=== PATIENT | male | born 1950 | race African-American/Black ===

== ENCOUNTER 2017-10-27 17:08 | Inpatient (IN) | payer MEDICARE ==
[~2017-10-27] VITALS: Ht 177.8 cm; Wt 59.0 kg
[~2017-10-27 17:08] MED LIST: ASPI-1159 PO; ATOR40TA70 PO; CARV12.545 PO; CHOL100046 PO; CLOP75TA33 PO; FURO40TA5 PO; POTA10CA42 PO; SITA50TA3 PO
[2017-10-27 17:44] VITALS: BP 157/88
[2017-10-27] MEDS ORDERED: ONDANSETRON HCL 4MG/2ML VIAL IV PRN (18:15)
[2017-10-27] MEDS: SODIUM CHLORIDE 0.9% 1,000 ML IV SCH (18:58)
[2017-10-27 19:44] VITALS: BP 157/88
[2017-10-27 20:00] VITALS: BP 152/95
[2017-10-27] MEDS ORDERED: DEXTROSE 50% WATER 50ML SYRINGE IV PRN (20:00)
[2017-10-27] MEDS ORDERED: METF500T4 PO (20:02)
[2017-10-27] MEDS ORDERED: LINA5TAB PO (20:03)
[2017-10-27] MEDS ORDERED: DULO60CA44 PO (20:06)
[2017-10-27] MEDS ORDERED: LORA10TA7 PO (20:10)
[2017-10-27] MEDS ORDERED: OXYB5TAB11 PO (20:10)
[2017-10-27] MEDS ORDERED: TAMS0.4C31 PO (20:10)
[2017-10-27] MEDS ORDERED: OMEP20CA10 PO (20:13)
[2017-10-27] MEDS ORDERED: ASPI-986 PO (20:15)
[2017-10-27] MEDS ORDERED: HYDR-4134 PO (20:17)
[2017-10-27] MEDS ORDERED: PATAODR EACHEYE (20:20)
[2017-10-27] MEDS ORDERED: LOSA100T14 PO (20:21)
[2017-10-27] MEDS: INSULIN LISPRO 100 UNITS/ML SUBCUT SCH (21:00)
[2017-10-27] MEDS: HYDRALAZINE HCL 25MG TABLET PO SCH (21:27)
[2017-10-27] MEDS: CARVEDILOL 12.5MG TABLET PO SCH (21:28)
[2017-10-27] MEDS: BLOOD SUGAR DIAGNOSTIC STRIP TEST SCH (21:29)
[2017-10-28] VITALS (7 sets, daily range): BP systolic 133–167; BP diastolic 73–100
[2017-10-28 00:59] LABS: INR 1.1
[2017-10-28 06:11] LABS: BASOPHILS % 1.1 % (0.0-2.0); EOSINOPHILS % 9.3 % (0.0-5.0); HEMATOCRIT. 35.6 % (42.0-52.0); HEMOGLOBIN. 12.1 g/dL (14.0-18.0); LYMPHOCYTES % 15.3 % (20.0-50.0); MEAN CORPUSCULAR VOLUME 90.9 fL (80.0-94.0); MONOCYTES % 10.1 % (2.0-8.0); NEUTROPHILS % 64.2 % (40.0-76.0); PLATELET 234 x1000/uL (130-400); RED BLOOD CELL COUNT 3.92 mill/uL (4.7-6.1); RED CELL DISTRIBUTION WIDTH 14.7 % (11.6-14.6)
[2017-10-28] MEDS: BLOOD SUGAR DIAGNOSTIC STRIP TEST SCH ×5 (06:32→20:29)
[2017-10-28] MEDS: OMEPRAZOLE 20MG CAPSULE EXTENDED RELEASE PO SCH (06:32)
[2017-10-28] MEDS: HYDRALAZINE HCL 25MG TABLET PO SCH ×3 (06:32→21:46)
[2017-10-28] MEDS ORDERED: BLOOD SUGAR DIAGNOSTIC STRIP TEST SCH (07:20)
[2017-10-28] MEDS: INSULIN LISPRO 100 UNITS/ML SUBCUT SCH ×4 (07:36→20:29)
[2017-10-28] MEDS: METFORMIN HCL 500MG TABLET PO SCH ×2 (07:41→18:07)
[2017-10-28] MEDS: SODIUM CHLORIDE 0.9% 1,000 ML IV SCH ×2 (07:49→20:28)
[2017-10-28] MEDS ORDERED: ASPIRIN 325MG TABLET PO SCH (09:00)
[2017-10-28] MEDS: NAPHAZOLINE HCL/PHENIR MAL OPHTH SOLN 15ML EACHEYE SCH ×2 (09:00→17:00)
[2017-10-28] MEDS: LOSARTAN POTASSIUM 100 MG TABLET PO SCH (09:06)
[2017-10-28] MEDS: CARVEDILOL 12.5MG TABLET PO SCH ×2 (09:07→20:28)
[2017-10-28] MEDS: CLOPIDOGREL 75MG TABLET PO SCH (09:07)
[2017-10-28] MEDS: DULOXETINE HCL 60MG DR CAPSULE PO SCH (09:07)
[2017-10-28] MEDS: OXYBUTYNIN CHLORIDE 5MG TABLET PO SCH (09:07)
[2017-10-28] MEDS: FUROSEMIDE 40MG TABLET PO SCH (09:08)
[2017-10-28] MEDS: TAMSULOSIN HCL 0.4MG SR CAPSULE PO SCH (09:08)
[2017-10-28] MEDS: LINAGLIPTIN 5MG TABLET PO SCH (09:08)
[2017-10-28] MEDS: LORATADINE 10MG TABLET PO SCH (09:08)
[2017-10-28 16:05] LABS: FOLIC ACID (FOLATE) SERUM 13.3 ng/mL (>5.38)
[2017-10-28] MEDS ORDERED: POTASSIUM CHLORIDE 20MEQ TABLET SR PO NR (16:30)
[2017-10-28 17:01] LABS: AMMONIA < 25 uMol/L (<32); ETHANOL BLOOD < 10 mg/dL
[2017-10-28 17:12] LABS: T4 FREE 1.03 ng/dL (0.76-1.46)
[2017-10-28] MEDS: ATORVASTATIN CALCIUM 40MG TABLET PO SCH (20:28)
[2017-10-29] VITALS: BP 130/89
[2017-10-29 03:17] LABS: *AMPHETAMINES SCREEN URINE NEGATIVE (NEGATIVE); *BARBITURATES SCREEN URINE NEGATIVE (NEGATIVE); *BENZODIAZEPINES SCREEN URINE NEGATIVE (NEGATIVE); *COCAINE SCREEN URINE NEGATIVE (NEGATIVE); CANNABINOID URINE SCREEN NEGATIVE (NEGATIVE); METHADONE URINE SCREEN NEGATIVE (NEGATIVE); OPIATES URINE SCREEN NEGATIVE (NEGATIVE); PHENCYCLIDINE URINE SCREEN NEGATIVE (NEGATIVE)
[2017-10-29 04:00] VITALS: BP 134/77
[2017-10-29] MEDS: HYDRALAZINE HCL 25MG TABLET PO SCH ×3 (06:05→21:21)
[2017-10-29] MEDS: BLOOD SUGAR DIAGNOSTIC STRIP TEST SCH ×4 (06:06→21:31)
[2017-10-29] MEDS: SODIUM CHLORIDE 0.9% 1,000 ML IV SCH ×2 (06:07→23:13)
[2017-10-29 08:00] VITALS: BP 183/102
[2017-10-29] MEDS: INSULIN LISPRO 100 UNITS/ML SUBCUT SCH ×4 (08:10→21:00)
[2017-10-29] MEDS: METFORMIN HCL 500MG TABLET PO SCH ×2 (08:24→18:04)
[2017-10-29] MEDS: LORATADINE 10MG TABLET PO SCH (08:24)
[2017-10-29] MEDS: OMEPRAZOLE 20MG CAPSULE EXTENDED RELEASE PO SCH (08:24)
[2017-10-29] MEDS: CLOPIDOGREL 75MG TABLET PO SCH (08:24)
[2017-10-29] MEDS: LINAGLIPTIN 5MG TABLET PO SCH (08:25)
[2017-10-29] MEDS: FUROSEMIDE 40MG TABLET PO SCH (08:25)
[2017-10-29] MEDS: DULOXETINE HCL 60MG DR CAPSULE PO SCH (08:25)
[2017-10-29] MEDS: LOSARTAN POTASSIUM 100 MG TABLET PO SCH (08:25)
[2017-10-29] MEDS: TAMSULOSIN HCL 0.4MG SR CAPSULE PO SCH (08:25)
[2017-10-29] MEDS: OXYBUTYNIN CHLORIDE 5MG TABLET PO SCH (08:25)
[2017-10-29] MEDS: CARVEDILOL 12.5MG TABLET PO SCH ×2 (08:25→21:21)
[2017-10-29] MEDS: ASPIRIN 81MG TABLET PO SCH (08:26)
[2017-10-29] MEDS: NAPHAZOLINE HCL/PHENIR MAL OPHTH SOLN 15ML EACHEYE SCH ×2 (08:26→17:30)
[2017-10-29 09:15] LABS: BG BASE EXCESS -2.4 mmol/L (-2.0-2.0); BG DEOXYHEMOGLOBIN 3.2 % (0.0-5.0); BG FRACTION INSPIRED OXYGEN 21; BG HCO3 ACT 21.4 mmol/L (22.0-26.0); BG METHEMOGLOBIN 0.3 % (0.0-1.5); BG OXYGEN SATURATION 96.8 % (92.0-98.5); BG OXYHEMOGLOBIN 96.5 % (94.0-97.0); BG PCO2 34.1 mmHg (35.0-45.0); BG PH 7.416 (7.350-7.450); BG PO2 93.9 mmHg (75.0-100.0); BG SAMPLE SITE LEFT RADIAL; BG TOTAL HEMOGLOBIN 13.5 g/dL (12.0-18.0); BG VENT MODE ROOM AIR
[2017-10-29 12:00] VITALS: BP 138/86
[2017-10-29 16:00] VITALS: BP 149/90
[2017-10-29] MEDS: IPRATROPIUM/ALBUTEROL 0.5-3(2.5)MG/3ML NEB HHN SCH ×2 (16:25→20:45)
[2017-10-29 20:22] VITALS: BP 150/84
[2017-10-29] MEDS: ATORVASTATIN CALCIUM 40MG TABLET PO SCH (21:21)
[2017-10-30] VITALS: BP 162/82
[2017-10-30] MEDS: IPRATROPIUM/ALBUTEROL 0.5-3(2.5)MG/3ML NEB HHN SCH ×5 (01:12→20:18)
[2017-10-30 04:00] VITALS: BP 145/91
[2017-10-30] MEDS: HYDRALAZINE HCL 25MG TABLET PO SCH ×3 (06:04→20:32)
[2017-10-30 06:42] LABS: EOSINOPHILS % 8.5 % (0.0-5.0); HEMATOCRIT. 37.2 % (42.0-52.0); HEMOGLOBIN. 12.5 g/dL (14.0-18.0); LYMPHOCYTES % 12.2 % (20.0-50.0); MEAN CORPUSCULAR HEMOGLOBIN 30.6 pg (28.0-32.0); MEAN CORPUSCULAR VOLUME 90.9 fL (80.0-94.0); MEAN PLATELET VOLUME 8.1 fl (7.4-10.4); MONOCYTES % 10.1 % (2.0-8.0); NEUTROPHILS % 68.2 % (40.0-76.0); PLATELET 233 x1000/uL (130-400); RED BLOOD CELL COUNT 4.09 mill/uL (4.7-6.1); RED CELL DISTRIBUTION WIDTH 14.6 % (11.6-14.6)
[2017-10-30 07:30] LABS: CHLORIDE 105 mEq/L (98-107)
[2017-10-30 07:38] LABS: HDL CHOLESTEROL 27 mg/dL (40-59); LDL CHOLESTEROL 88 mg/dL (5-100)
[2017-10-30 08:00] VITALS: BP 147/84
[2017-10-30] MEDS: INSULIN LISPRO 100 UNITS/ML SUBCUT SCH ×4 (08:10→20:36)
[2017-10-30] MEDS: BLOOD SUGAR DIAGNOSTIC STRIP TEST SCH ×4 (08:21→20:32)
[2017-10-30] MEDS: OMEPRAZOLE 20MG CAPSULE EXTENDED RELEASE PO SCH (08:42)
[2017-10-30] MEDS: NAPHAZOLINE HCL/PHENIR MAL OPHTH SOLN 15ML EACHEYE SCH ×2 (08:42→17:40)
[2017-10-30] MEDS: ASPIRIN 81MG TABLET PO SCH (08:42)
[2017-10-30] MEDS: OXYBUTYNIN CHLORIDE 5MG TABLET PO SCH (08:42)
[2017-10-30] MEDS: METFORMIN HCL 500MG TABLET PO SCH ×2 (08:42→17:40)
[2017-10-30] MEDS: LOSARTAN POTASSIUM 100 MG TABLET PO SCH (08:42)
[2017-10-30] MEDS: DULOXETINE HCL 60MG DR CAPSULE PO SCH (08:43)
[2017-10-30] MEDS: FUROSEMIDE 40MG TABLET PO SCH (08:43)
[2017-10-30] MEDS: TAMSULOSIN HCL 0.4MG SR CAPSULE PO SCH (08:43)
[2017-10-30] MEDS: CLOPIDOGREL 75MG TABLET PO SCH (08:44)
[2017-10-30] MEDS: CARVEDILOL 12.5MG TABLET PO SCH (08:44)
[2017-10-30] MEDS: LINAGLIPTIN 5MG TABLET PO SCH (08:44)
[2017-10-30] MEDS: LORATADINE 10MG TABLET PO SCH (08:44)
[2017-10-30 10:37] LABS: BG BASE EXCESS -4.6 mmol/L (-2.0-2.0); BG CARBOXYHEMOGLOBIN 0.1 % (0.5-1.5); BG DEOXYHEMOGLOBIN 2.9 % (0.0-5.0); BG FRACTION INSPIRED OXYGEN 21; BG HCO3 ACT 19.5 mmol/L (22.0-26.0); BG METHEMOGLOBIN 0.2 % (0.0-1.5); BG OXYGEN SATURATION 97.1 % (92.0-98.5); BG OXYHEMOGLOBIN 96.8 % (94.0-97.0); BG PCO2 32.9 mmHg (35.0-45.0); BG PO2 99.9 mmHg (75.0-100.0); BG SAMPLE SITE LEFT RADIAL; BG TOTAL HEMOGLOBIN 12.6 g/dL (12.0-18.0); BG VENT MODE ROOM AIR
[2017-10-30] MEDS ORDERED: CARVEDILOL 12.5MG TABLET PO SCH (11:30)
[2017-10-30 12:00] VITALS: BP_SYST 116; BP_SYST 134; BP_SYST 148; BP_DIAS 101; BP_DIAS 77; BP_DIAS 82
[2017-10-30] MEDS: SODIUM CHLORIDE 0.9% 1,000 ML IV SCH (13:51)
[2017-10-30 16:00] VITALS: BP 146/90
[2017-10-30 20:00] VITALS: BP_SYST 140; BP_SYST 145; BP_SYST 162; BP_DIAS 85; BP_DIAS 92; BP_DIAS 97
[2017-10-30] MEDS: ATORVASTATIN CALCIUM 40MG TABLET PO SCH (20:31)
[2017-10-30] MEDS: CARVEDILOL 25MG TABLET PO SCH (20:32)
[2017-10-31] VITALS: BP 133/82
[2017-10-31] MEDS: IPRATROPIUM/ALBUTEROL 0.5-3(2.5)MG/3ML NEB HHN SCH ×6 (00:22→20:17)
[2017-10-31] MEDS: SODIUM CHLORIDE 0.9% 1,000 ML IV SCH ×2 (02:16→13:20)
[2017-10-31 04:00] VITALS: BP 141/97
[2017-10-31 06:10] LABS: BASOPHILS % 1.2 % (0.0-2.0); HEMATOCRIT. 34.5 % (42.0-52.0); HEMOGLOBIN. 11.8 g/dL (14.0-18.0); LYMPHOCYTES % 14.3 % (20.0-50.0); MEAN CORPUSCULAR HEMOGLOBIN 30.8 pg (28.0-32.0); MEAN CORPUSCULAR VOLUME 90.5 fL (80.0-94.0); MEAN PLATELET VOLUME 7.9 fl (7.4-10.4); MONOCYTES % 9.7 % (2.0-8.0); NEUTROPHILS % 66.8 % (40.0-76.0); PLATELET 229 x1000/uL (130-400); RED BLOOD CELL COUNT 3.82 mill/uL (4.7-6.1); RED CELL DISTRIBUTION WIDTH 14.5 % (11.6-14.6)
[2017-10-31] MEDS: HYDRALAZINE HCL 25MG TABLET PO SCH ×3 (06:12→22:00)
[2017-10-31] MEDS: BLOOD SUGAR DIAGNOSTIC STRIP TEST SCH ×4 (06:12→21:00)
[2017-10-31] MEDS: INSULIN LISPRO 100 UNITS/ML SUBCUT SCH ×4 (07:16→21:00)
[2017-10-31 08:00] VITALS: BP 159/83
[2017-10-31 08:20] LABS: CHLORIDE 105 mEq/L (98-107)
[2017-10-31] MEDS: NAPHAZOLINE HCL/PHENIR MAL OPHTH SOLN 15ML EACHEYE SCH ×2 (09:36→17:48)
[2017-10-31] MEDS: ASPIRIN 81MG TABLET PO SCH (09:36)
[2017-10-31] MEDS: LINAGLIPTIN 5MG TABLET PO SCH (09:37)
[2017-10-31] MEDS: FUROSEMIDE 40MG TABLET PO SCH (09:37)
[2017-10-31] MEDS: CLOPIDOGREL 75MG TABLET PO SCH (09:37)
[2017-10-31] MEDS: METFORMIN HCL 500MG TABLET PO SCH ×2 (09:37→17:45)
[2017-10-31] MEDS: OXYBUTYNIN CHLORIDE 5MG TABLET PO SCH (09:37)
[2017-10-31] MEDS: FAMOTIDINE 20MG TABLET PO SCH (09:37)
[2017-10-31] MEDS: LOSARTAN POTASSIUM 100 MG TABLET PO SCH (09:37)
[2017-10-31] MEDS: CARVEDILOL 25MG TABLET PO SCH ×2 (09:38→21:51)
[2017-10-31] MEDS: DULOXETINE HCL 60MG DR CAPSULE PO SCH (09:38)
[2017-10-31] MEDS: LORATADINE 10MG TABLET PO SCH (09:38)
[2017-10-31] MEDS: TAMSULOSIN HCL 0.4MG SR CAPSULE PO SCH (09:38)
[2017-10-31 12:00] VITALS: BP 143/83
[2017-10-31 16:00] VITALS: BP 127/84
[2017-10-31 20:00] VITALS: BP 135/76
[2017-10-31] MEDS: ATORVASTATIN CALCIUM 40MG TABLET PO SCH (21:49)
[2017-11-01] VITALS: BP 150/89
[2017-11-01] MEDS: IPRATROPIUM/ALBUTEROL 0.5-3(2.5)MG/3ML NEB HHN SCH ×3 (00:33→08:13)
[2017-11-01 04:00] VITALS: BP 102/45
[2017-11-01] MEDS: SODIUM CHLORIDE 0.9% 1,000 ML IV SCH (04:55)
[2017-11-01] MEDS: HYDRALAZINE HCL 25MG TABLET PO SCH (06:00)
[2017-11-01] MEDS: BLOOD SUGAR DIAGNOSTIC STRIP TEST SCH (06:37)
[2017-11-01 07:36] LABS: BASOPHILS % 0.8 % (0.0-2.0); HEMATOCRIT. 36.8 % (42.0-52.0); HEMOGLOBIN. 12.5 g/dL (14.0-18.0); LYMPHOCYTES % 10.1 % (20.0-50.0); MEAN CORPUSCULAR HEMOGLOBIN 30.9 pg (28.0-32.0); MEAN CORPUSCULAR VOLUME 90.7 fL (80.0-94.0); MEAN PLATELET VOLUME 8.1 fl (7.4-10.4); MONOCYTES % 9.4 % (2.0-8.0); NEUTROPHILS % 71.7 % (40.0-76.0); PLATELET 236 x1000/uL (130-400); RED BLOOD CELL COUNT 4.06 mill/uL (4.7-6.1); RED CELL DISTRIBUTION WIDTH 14.8 % (11.6-14.6)
[2017-11-01 08:00] VITALS: BP 135/78
[2017-11-01] MEDS: INSULIN LISPRO 100 UNITS/ML SUBCUT SCH (08:10)
[2017-11-01 08:12] LABS: CHLORIDE 104 mEq/L (98-107)
[2017-11-01] MEDS ORDERED: IPRATROPIUM/ALBUTEROL 0.5-3(2.5)MG/3ML NEB HHN PRN (08:45)
[2017-11-01] MEDS: ASPIRIN 81MG TABLET PO SCH (08:47)
[2017-11-01] MEDS: FUROSEMIDE 40MG TABLET PO SCH (08:47)
[2017-11-01] MEDS: CLOPIDOGREL 75MG TABLET PO SCH (08:47)
[2017-11-01] MEDS: METFORMIN HCL 500MG TABLET PO SCH (08:47)
[2017-11-01] MEDS: OXYBUTYNIN CHLORIDE 5MG TABLET PO SCH (08:47)
[2017-11-01] MEDS: FAMOTIDINE 20MG TABLET PO SCH (08:47)
[2017-11-01] MEDS: LOSARTAN POTASSIUM 100 MG TABLET PO SCH (08:47)
[2017-11-01] MEDS: TAMSULOSIN HCL 0.4MG SR CAPSULE PO SCH (08:48)
[2017-11-01] MEDS: LORATADINE 10MG TABLET PO SCH (08:53)
[2017-11-01] MEDS: DULOXETINE HCL 60MG DR CAPSULE PO SCH (08:53)
[2017-11-01] MEDS: CARVEDILOL 25MG TABLET PO SCH (08:54)
[2017-11-01] MEDS: LINAGLIPTIN 5MG TABLET PO SCH (08:54)
[2017-11-01] MEDS: NAPHAZOLINE HCL/PHENIR MAL OPHTH SOLN 15ML EACHEYE SCH (09:00)
[2017-11-01 09:42] VITALS: BP 135/78
[2017-11-01 12:00] VITALS: BP 130/79
== END 2017-11-01 13:45 | DRG 291 ==
LOC: 6EST 17:08 → 7WST 10-28 17:40
PROVIDERS: ADMIT Family Medicine Adult Medicine; ATTEND Family Medicine Adult Medicine
PROC: 4A00X4Z Measurement of Central Nervous Electrical Activity, External Approach (ICD-10-PCS; principal; 2017-10-31)
DX: I13.0 Hypertensive heart and chronic kidney disease with heart failure and stage 1 through stage 4 chronic kidney disease, or unspecified chronic kidney disease (principal); G92 Toxic encephalopathy; E11.22 Type 2 diabetes mellitus with diabetic chronic kidney disease; I42.9 Cardiomyopathy, unspecified; I65.29 Occlusion and stenosis of unspecified carotid artery; I50.9 Heart failure, unspecified; W18.39XA Other fall on same level, initial encounter; N18.9 Chronic kidney disease, unspecified; D64.9 Anemia, unspecified; E78.00 Pure hypercholesterolemia, unspecified; E78.5 Hyperlipidemia, unspecified; I25.10 Atherosclerotic heart disease of native coronary artery without angina pectoris; J44.9 Chronic obstructive pulmonary disease, unspecified; N40.0 Benign prostatic hyperplasia without lower urinary tract symptoms; Y93.89 Activity, other specified; Y92.89 Other specified places as the place of occurrence of the external cause; Y99.8 Other external cause status; Z79.02 Long term (current) use of antithrombotics/antiplatelets; Z82.49 Family history of ischemic heart disease and other diseases of the circulatory system; Z83.3 Family history of diabetes mellitus; Z86.73 Personal history of transient ischemic attack (TIA), and cerebral infarction without residual deficits
CPT/HCPCS: 36415; 36600; 70544; 70551; 71045; 80048; 80061; 80305; 82140; 82375; 82607; 82746; 82805; 82962; 83036; 83735; 84439; 84443; 84481; 85025; 85384; 85610; 87077; 87086; 92523; 93005; 93306; 93880; 94640; 97162; 97166; G0482; J1815; J7030; J7620

== ENCOUNTER 2019-01-01 18:12 | Inpatient (IN) | payer MEDICARE, MEDICAID ==
[~2019-01-01] VITALS: Ht 180.3 cm; Wt 74.9 kg
[~2019-01-01 18:12] MED LIST changes: -ASPI-1159 PO; +ASPI-986 PO; -CHOL100046 PO; +DULO60CA44 PO; +HYDR-4134 PO; +LINA5TAB PO; +LORA10TA7 PO; +LOSA100T32 PO; +METF-414 PO; +OMEP20CA5 PO; +OXYB5TAB11 PO; +PATAODR EACHEYE; -POTA10CA42 PO; -SITA50TA3 PO; +TAMS0.4C31 PO
[2019-01-01] MEDS ORDERED: FUROSEMIDE 40MG/4ML VIAL IV ONE (19:45)
[2019-01-01] MEDS ORDERED: METHYLPREDNISOLONE SOD SUCC 125 MG/2 ML VIAL IV STA (19:45)
[2019-01-01] MEDS ORDERED: LEVOFLOXACIN 750MG PREMIX 150 ML IV ONE (19:45)
[2019-01-01] MEDS ORDERED: IPRATROPIUM/ALBUTEROL 0.5-3(2.5)MG/3ML NEB HHN ONE (19:45)
[2019-01-01 20:21] LABS: BG BASE EXCESS -1.1 mmol/L (-2.0-2.0); BG CARBOXYHEMOGLOBIN 0.6 % (0.5-1.5); BG DEOXYHEMOGLOBIN 4.3 % (0.0-5.0); BG FRACTION INSPIRED OXYGEN 36; BG HCO3 ACT 24.3 mmol/L (22.0-26.0); BG METHEMOGLOBIN 0.1 % (0.0-1.5); BG OXYGEN SATURATION 95.7 % (92.0-98.5); BG PCO2 43.1 mmHg (35.0-45.0); BG PH 7.369 (7.350-7.450); BG PO2 83.9 mmHg (75.0-100.0); BG SAMPLE SITE RIGHT RADIAL; BG TOTAL HEMOGLOBIN 14.9 g/dL (12.0-18.0); BG VENT MODE NASAL CANNULA
[2019-01-01 20:22] LABS: BASOPHILS % 0.7 % (0.0-2.0); EOSINOPHILS % 10.8 % (0.0-5.0); HEMATOCRIT. 46.9 % (42.0-52.0); HEMOGLOBIN. 15.8 g/dL (14.0-18.0); LYMPHOCYTES % 7.3 % (20.0-50.0); MEAN CORPUSCULAR HEMOGLOBIN 30.5 pg (28.0-32.0); MEAN CORPUSCULAR VOLUME 90.6 fL (80.0-94.0); MEAN PLATELET VOLUME 7.9 fl (7.4-10.4); MONOCYTES % 5.5 % (2.0-8.0); NEUTROPHILS % 75.7 % (40.0-76.0); PLATELET 292 x1000/uL (130-400); RED BLOOD CELL COUNT 5.18 mill/uL (4.7-6.1); RED CELL DISTRIBUTION WIDTH 14.6 % (11.6-14.6)
[2019-01-01 20:25] LABS: CHLORIDE 102 mEq/L (98-107)
[2019-01-01 20:27] LABS: INR 1.1; PARTIAL THROMBOPLASTIN TIME 30.9 sec (23.4-31.0); PROTHROMBIN TIME 10.8 sec (9.6-11.0)
[2019-01-01 20:29] LABS: ETHANOL BLOOD < 10 mg/dL
[2019-01-01 22:18] LABS: CLARITY URINE CLEAR (CLEAR); COLOR URINE YELLOW (YELLOW); KETONES URINE NEGATIVE (NEGATIVE); LEUKOCYTE ESTERASE URINE NEGATIVE (NEGATIVE); NITRITE URINE NEGATIVE (NEGATIVE); OCCULT BLOOD URINE NEGATIVE (NEGATIVE); PROTEIN URINE NEGATIVE (NEGATIVE); SPECIFIC GRAVITY URINE 1.012 (1.005-1.030); UROBILINOGEN URINE 0.2 E.U./dL (0.2-1.0)
[2019-01-01 22:29] LABS: OPIATES URINE SCREEN NEGATIVE (NEGATIVE); PHENCYCLIDINE URINE SCREEN NEGATIVE (NEGATIVE)
[2019-01-01 22:30] LABS: *AMPHETAMINES SCREEN URINE NEGATIVE (NEGATIVE); *BARBITURATES SCREEN URINE NEGATIVE (NEGATIVE); *BENZODIAZEPINES SCREEN URINE NEGATIVE (NEGATIVE); *COCAINE SCREEN URINE NEGATIVE (NEGATIVE); CANNABINOID URINE SCREEN NEGATIVE (NEGATIVE); METHADONE URINE SCREEN NEGATIVE (NEGATIVE)
[2019-01-01] MEDS ORDERED: IPRATROPIUM/ALBUTEROL 0.5-3(2.5)MG/3ML NEB INH PRN (22:30)
[2019-01-01] MEDS ORDERED: HYDROCODONE/APAP 7.5/325MG 1 TAB TABLET PO PRN (22:30)
[2019-01-01] MEDS ORDERED: CLONIDINE 0.1MG TABLET PO PRN (22:30)
[2019-01-01] MEDS ORDERED: MAGNESIUM/ALUMINUM HYDROXIDE/SIMETHICONE 30ML UDC PO PRN (22:30)
[2019-01-01] MEDS ORDERED: DOCUSATE SODIUM 100MG CAPSULE PO PRN (22:30)
[2019-01-01] MEDS ORDERED: HYDROCODONE/ACETAMINOPHEN 5/325MG TABLET PO PRN (22:30)
[2019-01-01] MEDS ORDERED: DIPHENHYDRAMINE 50MG/ML VIAL IV PRN (22:30)
[2019-01-01] MEDS ORDERED: LORAZEPAM 0.5MG TABLET PO PRN (22:30)
[2019-01-01] MEDS ORDERED: ACETAMINOPHEN 325MG TABLET PO PRN (22:30)
[2019-01-01] MEDS ORDERED: ONDANSETRON HCL 4MG/2ML INJ IV PRN (22:30)
[2019-01-01] MEDS ORDERED: GUAIFENESIN 200MG/10ML SUGAR FREE UDC PO PRN (22:30)
[2019-01-01 23:40] VITALS: BP 134/88
[2019-01-02] VITALS: BP_SYST 100; BP_SYST 134; BP_DIAS 59; BP_DIAS 88
[2019-01-02] MEDS ORDERED: DEXTROSE 50% WATER 50ML SYRINGE IV PRN (00:45)
[2019-01-02] MEDS ORDERED: CARV25TA47 PO (01:38)
[2019-01-02] MEDS ORDERED: FAMO20TA8 PO (01:38)
[2019-01-02] MEDS ORDERED: ONDA4TAB50 PO (01:38)
[2019-01-02] MEDS ORDERED: ASPI-1393 PO (01:38)
[2019-01-02] MEDS ORDERED: DULO30CA2 PO (01:38)
[2019-01-02] MEDS ORDERED: NAPHADR OP (01:38)
[2019-01-02] MEDS ORDERED: IPRA3AMP9 HHN (01:38)
[2019-01-02] MEDS ORDERED: METF-816 PO (01:38)
[2019-01-02] MEDS ORDERED: EMPA25TA PO (01:38)
[2019-01-02 04:00] VITALS: BP 128/74
[2019-01-02 06:18] LABS: HEMATOCRIT. 41.3 % (42.0-52.0); HEMOGLOBIN. 13.9 g/dL (14.0-18.0); MEAN CORPUSCULAR HEMOGLOBIN 30.2 pg (28.0-32.0); MEAN CORPUSCULAR VOLUME 89.5 fL (80.0-94.0); PLATELET 276 x1000/uL (130-400); RED BLOOD CELL COUNT 4.61 mill/uL (4.7-6.1); RED CELL DISTRIBUTION WIDTH 14.7 % (11.6-14.6)
[2019-01-02] MEDS: INSULIN LISPRO 100 UNITS/ML SUBCUT SCH ×4 (06:34→20:43)
[2019-01-02] MEDS: BLOOD SUGAR DIAGNOSTIC STRIP TEST SCH ×4 (06:35→20:37)
[2019-01-02 06:39] LABS: CHLORIDE 103 mEq/L (98-107)
[2019-01-02 06:50] LABS: LDL CHOLESTEROL 84 mg/dL (5-100)
[2019-01-02 06:51] LABS: HDL CHOLESTEROL 29 mg/dL (40-59); PHOSPHORUS 2.6 mg/dL (2.5-4.9)
[2019-01-02 08:00] VITALS: BP 102/68
[2019-01-02] MEDS ORDERED: METHYLPREDNISOLONE SOD SUCC 125 MG/2 ML VIAL IV NR (09:00)
[2019-01-02] MEDS: ENOXAPARIN 40MG/0.4ML SYR SUBCUT SCH (09:03)
[2019-01-02 12:00] VITALS: BP 96/66
[2019-01-02] MEDS ORDERED: BENZONATATE 100MG CAPSULE PO PRN (13:45)
[2019-01-02 14:24] LABS: PLATELET ESTIMATE NORMAL
[2019-01-02 16:00] VITALS: BP 97/68
[2019-01-02] MEDS: MONTELUKAST SODIUM 10MG TABLET PO SCH (17:28)
[2019-01-02 20:00] VITALS: BP 97/64
[2019-01-02] MEDS: FLUTICASONE PROPIONATE 50MCG/SPRAY BOTTLE BOTHNSTRLS SCH (20:40)
[2019-01-02] MEDS: LORATADINE 10MG TABLET PO SCH (20:40)
[2019-01-03] VITALS: BP 100/59
[2019-01-03 04:00] VITALS: BP 110/60
[2019-01-03] MEDS: BLOOD SUGAR DIAGNOSTIC STRIP TEST SCH ×4 (06:13→20:16)
[2019-01-03] MEDS: INSULIN LISPRO 100 UNITS/ML SUBCUT SCH ×4 (06:15→20:26)
[2019-01-03 08:00] VITALS: BP 121/78
[2019-01-03] MEDS: BUDESONIDE 0.5MG/2ML NEB HHN SCH ×2 (09:04→20:48)
[2019-01-03] MEDS: ENOXAPARIN 40MG/0.4ML SYR SUBCUT SCH (09:10)
[2019-01-03] MEDS: FLUTICASONE PROPIONATE 50MCG/SPRAY BOTTLE BOTHNSTRLS SCH ×2 (09:11→20:22)
[2019-01-03 12:00] VITALS: BP 112/61
[2019-01-03] MEDS ORDERED: SODIUM CHLORIDE 0.45% 500 ML IV ONE (14:30)
[2019-01-03] MEDS: CLOPIDOGREL 75MG TABLET PO SCH (14:58)
[2019-01-03 16:00] VITALS: BP 112/84
[2019-01-03 16:38] LABS: HEMOGLOBIN 13.4 g/dL (14.0-18.0); MEAN CORPUSCULAR HEMOGLOBIN 30.2 pg (28.0-32.0); MEAN CORPUSCULAR VOLUME 90.3 fL (80.0-94.0); PLATELET 262 x1000/uL (130-400); RED BLOOD CELL COUNT 4.43 mill/uL (4.7-6.1); RED CELL DISTRIBUTION WIDTH 14.6 % (11.6-14.6)
[2019-01-03 16:56] LABS: CHLORIDE 102 mEq/L (98-107)
[2019-01-03] MEDS: MONTELUKAST SODIUM 10MG TABLET PO SCH (17:12)
[2019-01-03] MEDS: NAPHAZOLINE HCL/PHENIR MAL OPHTH SOLN 15ML BOTHEYE SCH (17:12)
[2019-01-03 20:00] VITALS: BP 110/71
[2019-01-03] MEDS: LORATADINE 10MG TABLET PO SCH (20:21)
[2019-01-03] MEDS ORDERED: FAMOTIDINE 20MG TABLET PO SCH (21:00)
[2019-01-03] MEDS ORDERED: IPRATROPIUM/ALBUTEROL 0.5-3(2.5)MG/3ML NEB HHN PRN (22:00)
[2019-01-04] VITALS: BP 121/69
[2019-01-04 04:00] VITALS: BP 116/68
[2019-01-04 06:17] LABS: BASOPHILS % 0.3 % (0.0-2.0); EOSINOPHILS % 0.5 % (0.0-5.0); HEMATOCRIT. 38.3 % (42.0-52.0); HEMOGLOBIN. 12.8 g/dL (14.0-18.0); LYMPHOCYTES % 8.4 % (20.0-50.0); MEAN CORPUSCULAR HEMOGLOBIN 29.9 pg (28.0-32.0); MEAN CORPUSCULAR VOLUME 89.9 fL (80.0-94.0); MEAN PLATELET VOLUME 8.3 fl (7.4-10.4); MONOCYTES % 8.5 % (2.0-8.0); NEUTROPHILS % 82.3 % (40.0-76.0); PLATELET 239 x1000/uL (130-400); RED BLOOD CELL COUNT 4.26 mill/uL (4.7-6.1); RED CELL DISTRIBUTION WIDTH 14.7 % (11.6-14.6)
[2019-01-04] MEDS: INSULIN LISPRO 100 UNITS/ML SUBCUT SCH ×2 (06:47→12:27)
[2019-01-04] MEDS: BLOOD SUGAR DIAGNOSTIC STRIP TEST SCH ×2 (06:47→11:58)
[2019-01-04 08:00] VITALS: BP 121/80
[2019-01-04] MEDS: FLUTICASONE PROPIONATE 50MCG/SPRAY BOTTLE BOTHNSTRLS SCH (08:32)
[2019-01-04] MEDS: ENOXAPARIN 40MG/0.4ML SYR SUBCUT SCH (08:32)
[2019-01-04] MEDS: NAPHAZOLINE HCL/PHENIR MAL OPHTH SOLN 15ML BOTHEYE SCH (08:33)
[2019-01-04] MEDS: CLOPIDOGREL 75MG TABLET PO SCH (08:36)
[2019-01-04] MEDS ORDERED: TAMSULOSIN HCL 0.4MG SR CAPSULE PO SCH (09:00)
[2019-01-04] MEDS ORDERED: DULOXETINE HCL 30MG DR CAPSULE PO SCH (09:00)
[2019-01-04] MEDS ORDERED: CARVEDILOL 25MG TABLET PO SCH (09:00)
[2019-01-04] MEDS ORDERED: LORATADINE 10MG TABLET PO SCH (09:00)
[2019-01-04] MEDS ORDERED: ATORVASTATIN CALCIUM 40MG TABLET PO SCH (09:00)
[2019-01-04] MEDS ORDERED: ASPIRIN 81MG TABLET PO SCH (09:00)
[2019-01-04] MEDS ORDERED: OXYBUTYNIN CHLORIDE 5MG TABLET PO SCH (09:00)
[2019-01-04] MEDS ORDERED: FUROSEMIDE 40MG TABLET PO SCH (09:00)
[2019-01-04] MEDS: BUDESONIDE 0.5MG/2ML NEB HHN SCH (09:31)
[2019-01-04 12:00] VITALS: BP 106/63
[2019-01-04 14:07] VITALS: BP 112/72
== END 2019-01-04 15:25 | DRG 189 ==
LOC: ER 18:12 → EDBEDREQ 22:07 → EDBEDREQTM 22:07 → ENRESERV 22:20 → 5WST 23:03
PROVIDERS: ADMIT Family Medicine Adult Medicine; ATTEND Family Medicine Adult Medicine
DX: J96.00 Acute respiratory failure, unspecified whether with hypoxia or hypercapnia (principal); I13.0 Hypertensive heart and chronic kidney disease with heart failure and stage 1 through stage 4 chronic kidney disease, or unspecified chronic kidney disease; N17.9 Acute kidney failure, unspecified; R65.10 Systemic inflammatory response syndrome (SIRS) of non-infectious origin without acute organ dysfunction; I42.9 Cardiomyopathy, unspecified; J20.9 Acute bronchitis, unspecified; N18.9 Chronic kidney disease, unspecified; I50.9 Heart failure, unspecified; D64.9 Anemia, unspecified; E11.22 Type 2 diabetes mellitus with diabetic chronic kidney disease; I25.10 Atherosclerotic heart disease of native coronary artery without angina pectoris; E78.5 Hyperlipidemia, unspecified; I34.0 Nonrheumatic mitral (valve) insufficiency; I25.5 Ischemic cardiomyopathy; Z98.61 Coronary angioplasty status; I25.2 Old myocardial infarction; Z86.73 Personal history of transient ischemic attack (TIA), and cerebral infarction without residual deficits; Z82.49 Family history of ischemic heart disease and other diseases of the circulatory system; Z83.3 Family history of diabetes mellitus; Z79.899 Other long term (current) drug therapy; Z79.82 Long term (current) use of aspirin; Z79.02 Long term (current) use of antithrombotics/antiplatelets
CPT/HCPCS: 36415; 36600; 71045; 80048; 80061; 80305; 80320; 82375; 82805; 82962; 83036; 83605; 83735; 83880; 84100; 84145; 84443; 84484; 85027; 93005; 93306; 93970; 94640; 97116; 97162; 97166; 99285; C1893; J1650; J1815; J1940; J1956; J2930; J7620; J7626; G0480

== ENCOUNTER 2022-05-20 08:09 | Emergency (ER) | payer MEDICARE, MEDICAID ==
[~2022-05-20] VITALS: Ht 157.5 cm; Wt 78.0 kg
[~2022-05-20 08:09] MED LIST changes: +ASPI-1497 PO; -ASPI-986 PO; -CARV12.545 PO; +CARV25TA47 PO; +DULO30CA2 PO; -DULO60CA44 PO; +EMPA25TA PO; +FAMO20TA8 PO; +IPRA3AMP9 HHN; -METF-414 PO; +METF-874 PO; +NAPHADR OP; -OMEP20CA5 PO; +ONDA4TAB50 PO; -OXYB5TAB11 PO; +OXYB5TAB16 PO; -PATAODR EACHEYE
[2022-05-20 09:52] LABS: BASOPHILS % 1.3 % (0.0-2.0); EOSINOPHILS % 9.6 % (0.0-5.0); HEMATOCRIT. 30.7 % (42.0-52.0); HEMOGLOBIN. 10.3 g/dL (14.0-18.0); LYMPHOCYTES % 11.6 % (20.0-50.0); MEAN CORPUSCULAR HEMOGLOBIN 30.6 pg (28.0-32.0); MEAN CORPUSCULAR VOLUME 90.9 fL (80.0-94.0); MEAN PLATELET VOLUME 7.9 fl (7.4-10.4); MONOCYTES % 8.9 % (2.0-8.0); NEUTROPHILS % 68.6 % (40.0-76.0); PLATELET 283 x1000/uL (130-400); RED BLOOD CELL COUNT 3.38 mill/uL (4.7-6.1); RED CELL DISTRIBUTION WIDTH 14.3 % (11.6-14.6)
[2022-05-20 11:16] LABS: CHLORIDE 108 mEq/L (98-107)
[2022-05-20 12:38] VITALS: BP 130/80
== END 2022-05-20 14:33 | disposition home or self-care (01) ==
LOC: ER 08:09
DX: S09.8XXA Other specified injuries of head, initial encounter (principal); F03.90 Unspecified dementia, unspecified severity, without behavioral disturbance, psychotic disturbance, mood disturbance, and anxiety; E11.22 Type 2 diabetes mellitus with diabetic chronic kidney disease; I13.0 Hypertensive heart and chronic kidney disease with heart failure and stage 1 through stage 4 chronic kidney disease, or unspecified chronic kidney disease; N18.9 Chronic kidney disease, unspecified; I50.9 Heart failure, unspecified; Z86.73 Personal history of transient ischemic attack (TIA), and cerebral infarction without residual deficits; W07.XXXA Fall from chair, initial encounter; Y93.89 Activity, other specified; Y92.128 Other place in nursing home as the place of occurrence of the external cause
CPT/HCPCS: 36415; 80053; 85025; 93005; 99285

== ENCOUNTER 2024-08-16 09:38 | Inpatient (IN) | payer MEDICARE, MEDICAID ==
[~2024-08-16] VITALS: Ht 177.8 cm; Wt 87.6 kg
[~2024-08-16 09:38] MED LIST changes: -HYDR-4134 PO; +HYDR25TA78 PO; -LOSA100T32 PO; +LOSA100T33 PO; +METF-1150 PO; -METF-874 PO; -OXYB5TAB16 PO; +OXYB5TAB21 PO
[2024-08-16] MEDS: SODIUM CHLORIDE 0.9% 1,000 ML IV ONE (10:00)
[2024-08-16 11:16] LABS: BASOPHILS % 0.1 % (0.0-2.0); EOSINOPHILS % 2.8 % (0.0-5.0); HEMATOCRIT. 32.2 % (42.0-52.0); HEMOGLOBIN. 10.2 g/dL (14.0-18.0); LYMPHOCYTES % 8.4 % (20.0-50.0); MEAN CORPUSCULAR HEMOGLOBIN 30.5 pg (28.0-32.0); MEAN CORPUSCULAR HGB CONC 31.8 g/dL (31.0-37.0); MEAN CORPUSCULAR VOLUME 95.8 fL (80.0-94.0); MEAN PLATELET VOLUME 8.7 fl (7.4-10.4); MONOCYTES % 13.5 % (2.0-8.0); NEUTROPHILS % 75.2 % (40.0-76.0); PLATELET 212 x1000/uL (130-400); RED BLOOD CELL COUNT 3.36 mill/uL (4.7-6.1); RED CELL DISTRIBUTION WIDTH 15.5 % (11.6-14.6); WHITE BLOOD COUNT 10.1 x1000/uL (4.5-11.0)
[2024-08-16 11:20] LABS: CHLORIDE 105 mEq/L (98-107); POTASSIUM 4.1 mEq/L (3.5-5.1); SODIUM 134 mEq/L (136-145)
[2024-08-16 11:21] LABS: CALCIUM 8.9 mg/dL (8.7-10.4); CARBON DIOXIDE 21 mEq/L (21-32)
[2024-08-16 11:26] LABS: CREATININE 3.4 mg/dL (0.6-1.3); GLUCOSE 171 mg/dL (70-105); UREA NITROGEN BLOOD 52 mg/dL (9-23)
[2024-08-16 11:28] LABS: TROPONIN I HIGH SENSITIVITY 39 ng/L (3.0-53)
[2024-08-16] MEDS ORDERED: FUROSEMIDE 40MG/4ML VIAL IVP NR (13:30)
[2024-08-16] MEDS ORDERED: DEXTROSE 50% WATER 50ML SYRINGE IV PRN (13:30)
[2024-08-16] MEDS ORDERED: CLONIDINE 0.1MG TABLET PO PRN (13:30)
[2024-08-16] MEDS ORDERED: IPRATROPIUM/ALBUTEROL 0.5-3(2.5)MG/3ML NEB HHN PRN (13:30)
[2024-08-16] MEDS ORDERED: ACETAMINOPHEN 325MG TABLET PO PRN ×2 (13:30)
[2024-08-16] MEDS ORDERED: ONDANSETRON HCL 4MG/2ML INJ IV PRN (13:30)
[2024-08-16] MEDS: ENOXAPARIN 30MG/0.3ML SYR SUBCUT SCH (14:00)
[2024-08-16 14:40] LABS: PHOSPHORUS 3.4 mg/dL (2.5-4.9)
[2024-08-16] MEDS: FUROSEMIDE 40MG/4ML VIAL IVP NR (15:10)
[2024-08-16] MEDS ORDERED: IPRATROPIUM/ALBUTEROL 0.5-3(2.5)MG/3ML NEB HHN NR (17:00)
[2024-08-16 18:16] LABS: INR 1.1; PROTHROMBIN TIME 12.5 sec (9.6-11.0)
[2024-08-16 18:21] LABS: CREATINE KINASE MB FRACTION 3.6 ng/mL (0.5-3.6)
[2024-08-16] MEDS: ENOXAPARIN 80MG/0.8ML SYR SUBCUT NR (18:31)
[2024-08-16] MEDS: METHYLPREDNISOLONE SOD SUCC 125MG/2ML (ACT-O-VIAL) IV NR (18:31)
[2024-08-16] MEDS: DILTIAZEM HCL 60MG TABLET PO SCH (19:06)
[2024-08-16 20:00] VITALS: BP 147/105; PULSE 115; RESP 18; TEMP 35.72508; O2SAT 100
[2024-08-16 20:30] VITALS: BP 147/105; PULSE 115; RESP 20; TEMP 36.0288
[2024-08-16] MEDS ORDERED: METOPROLOL TARTRATE 25MG TABLET PO SCH ×2 (21:00)
[2024-08-16] MEDS: BLOOD SUGAR DIAGNOSTIC STRIP TEST SCH (21:00)
[2024-08-16] MEDS: INSULIN LISPRO 100 UNITS/ML SUBCUT SCH (21:00)
[2024-08-16] MEDS ORDERED: SILV20CR13 TP (21:32)
[2024-08-16] MEDS ORDERED: METO-539 PO (21:32)
[2024-08-16] MEDS ORDERED: GLIP5TAB22 PO (21:32)
[2024-08-16] MEDS ORDERED: FLUO15CR35 TP (21:32)
[2024-08-16] MEDS ORDERED: [UNRECOGNIZED DRUG - CODE] PO (21:32)
[2024-08-16] MEDS ORDERED: CALC-1059 PO (21:32)
[2024-08-16] MEDS ORDERED: FLUT12AE7 INH (21:32)
[2024-08-16] MEDS ORDERED: OLOP5DRO25 EACHEYE (21:32)
[2024-08-16] MEDS ORDERED: AMOX1TAB15 PO (21:32)
[2024-08-16] MEDS ORDERED: GABA-1180 PO (21:32)
[2024-08-16] MEDS: ATORVASTATIN CALCIUM 40MG TABLET PO SCH (22:20)
[2024-08-16] MEDS: TAMSULOSIN HCL 0.4MG SR CAPSULE PO SCH (22:20)
[2024-08-17] VITALS: BP 135/107; PULSE 91; RESP 20; TEMP 36.114; O2SAT 100
[2024-08-17 02:35] LABS: CREATINE KINASE MB FRACTION 3.2 ng/mL (0.5-3.6)
[2024-08-17 04:00] VITALS: BP 132/79; PULSE 75; RESP 19; TEMP 36.28068; O2SAT 96
[2024-08-17 07:21] LABS: POTASSIUM 4.1 mEq/L (3.5-5.1)
[2024-08-17 07:22] LABS: CALCIUM 9.1 mg/dL (8.7-10.4)
[2024-08-17 07:25] LABS: HEMATOCRIT. 33.6 % (42.0-52.0); MEAN CORPUSCULAR HEMOGLOBIN 30.8 pg (28.0-32.0); MEAN CORPUSCULAR HGB CONC 32.8 g/dL (31.0-37.0); MEAN CORPUSCULAR VOLUME 93.8 fL (80.0-94.0); MEAN PLATELET VOLUME 8.5 fl (7.4-10.4); PLATELET 179 x1000/uL (130-400); RED BLOOD CELL COUNT 3.58 mill/uL (4.7-6.1); RED CELL DISTRIBUTION WIDTH 15.2 % (11.6-14.6); WHITE BLOOD COUNT 7.6 x1000/uL (4.5-11.0)
[2024-08-17 07:26] LABS: CREATINE KINASE MB FRACTION 3.6 ng/mL (0.5-3.6); CREATININE 3.5 mg/dL (0.6-1.3)
[2024-08-17 07:29] LABS: ALANINE AMINOTRANSFERASE 115 IU/L (10-49); ALBUMIN 3.5 g/dL (3.2-4.8); ASPARTATE AMINOTRANSFERASE 73 IU/L (<34); BILIRUBIN DIRECT 0.2 mg/dL (<=3.0); BILIRUBIN TOTAL 0.7 mg/dL (0.1-1.0); PROTEIN TOTAL 6.3 g/dL (6.0-8.3)
[2024-08-17 07:32] LABS: DIFFERENTIAL COMMENT 1
[2024-08-17 08:00] VITALS: BP 133/99; PULSE 98; RESP 20; TEMP 36.44736; O2SAT 98
[2024-08-17] MEDS ORDERED: FUROSEMIDE 20MG/2ML VIAL IVP SCH (09:00)
[2024-08-17] MEDS: PANTOPRAZOLE SODIUM 40 MG/VIAL IV SCH (09:09)
[2024-08-17] MEDS: ASPIRIN 81MG EC TABLET PO SCH (09:10)
[2024-08-17] MEDS: LOSARTAN 100 MG TABLET PO SCH (09:10)
[2024-08-17] MEDS: FUROSEMIDE 40MG/4ML VIAL IVP SCH (09:10)
[2024-08-17] MEDS ORDERED: DEXTROSE 50% WATER 50ML SYRINGE IV PRN (09:45)
[2024-08-17] MEDS: BLOOD SUGAR DIAGNOSTIC STRIP TEST SCH (12:10)
[2024-08-17 12:28] VITALS: BP 129/93; PULSE 78; RESP 18; TEMP 36.05844; O2SAT 98
[2024-08-17] MEDS: INSULIN LISPRO 100 UNITS/ML SUBCUT SCH (12:42)
[2024-08-17 13:09] LABS: BG BASE EXCESS -5.5 mmol/L (-2.0-3.0); BG CARBOXYHEMOGLOBIN 0.2 % (0.5-1.5); BG DEOXYHEMOGLOBIN 5.7 % (0.0-5.0); BG HCO3 ACT 18.6 mmol/L (21.0-28.0); BG METHEMOGLOBIN 0.3 % (0.5-1.5); BG OXYGEN SATURATION 94.3 % (94.0-98.0); BG OXYHEMOGLOBIN 93.8 % (94.0-98.0); BG PCO2 31.6 mmHg (35.0-48.0); BG PH 7.388 (7.350-7.450); BG PO2 78.2 mmHg (83.0-108.0); BG SAMPLE SITE RIGHT RADIAL; BG TOTAL HEMOGLOBIN 10.8 g/dL (13.5-17.5); BG VENT MODE ROOM AIR
[2024-08-17 15:43] LABS: ANISOCYTOSIS 1+; PLATELET ESTIMATE NORMAL
[2024-08-17 16:00] VITALS: BP 130/54; PULSE 79; RESP 20; TEMP 36.50292; O2SAT 99
[2024-08-17] MEDS: ENOXAPARIN 80MG/0.8ML SYR SUBCUT SCH (18:15)
[2024-08-17] MEDS: NITROGLYCERIN 0.4MG TABLET SL SL PRN (19:46)
[2024-08-17 20:00] VITALS: BP 135/80; PULSE 80; RESP 17; TEMP 36.3918; O2SAT 100
[2024-08-17] MEDS: INSULIN GLARGINE 100 UNITS/ML SUBCUT SCH (21:12)
[2024-08-17 22:24] LABS: PHOSPHORUS 4.9 mg/dL (2.5-4.9)
[2024-08-17 22:37] LABS: CLARITY URINE CLEAR (CLEAR); COLOR URINE YELLOW (YELLOW); GLUCOSE URINE 1+ (NEGATIVE); KETONES URINE NEGATIVE (NEGATIVE); LEUKOCYTE ESTERASE URINE 1+ (NEGATIVE); NITRITE URINE NEGATIVE (NEGATIVE); OCCULT BLOOD URINE TRACE (NEGATIVE); PROTEIN URINE 2+ (NEGATIVE); SPECIFIC GRAVITY URINE 1.012 (1.005-1.030); UROBILINOGEN URINE 0.2 E.U./dL (0.2-1.0)
[2024-08-17 23:15] LABS: *AMPHETAMINES SCREEN URINE NEGATIVE (NEGATIVE); *BARBITURATES SCREEN URINE NEGATIVE (NEGATIVE); *BENZODIAZEPINES SCREEN URINE NEGATIVE (NEGATIVE)
[2024-08-17 23:16] LABS: *COCAINE SCREEN URINE NEGATIVE (NEGATIVE); CANNABINOID URINE SCREEN NEGATIVE (NEGATIVE); ECSTASY MDMA SCREEN URINE NEGATIVE (NEGATIVE); METHADONE URINE SCREEN NEGATIVE (NEGATIVE); OPIATES URINE SCREEN NEGATIVE (NEGATIVE); PHENCYCLIDINE URINE SCREEN NEGATIVE (NEGATIVE)
[2024-08-18] VITALS (9 sets, daily range): BP systolic 115–133; BP diastolic 64–81; PULSE 75–117; RESP 16–26; TEMP 36.114–36.55848; O2SAT 98–100
[2024-08-18 02:43] LABS: BACTERIA URINE 1+; SQUAMOUS EPITHELIAL CELL URINE 1+ /lpf (RARE/1+)
[2024-08-18 02:44] LABS: RBC URINE 0-2 /hpf (0-2)
[2024-08-18] MEDS: IPRATROPIUM/ALBUTEROL 0.5-3(2.5)MG/3ML NEB HHN SCH (03:17)
[2024-08-18 09:13] LABS: POTASSIUM 3.9 mEq/L (3.5-5.1)
[2024-08-18 09:14] LABS: CALCIUM 8.4 mg/dL (8.7-10.4); HEMATOCRIT 28.8 % (42.0-52.0); HEMOGLOBIN 9.4 g/dL (14.0-18.0); MEAN CORPUSCULAR HEMOGLOBIN 30.2 pg (28.0-32.0); MEAN CORPUSCULAR HGB CONC 32.5 g/dL (31.0-37.0); MEAN CORPUSCULAR VOLUME 92.8 fL (80.0-94.0); PLATELET 184 x1000/uL (130-400); RED BLOOD CELL COUNT 3.11 mill/uL (4.7-6.1); RED CELL DISTRIBUTION WIDTH 15.5 % (11.6-14.6); WHITE BLOOD COUNT 13.4 x1000/uL (4.5-11.0)
[2024-08-18] MEDS: CEFTRIAXONE 1GM/50ML 50 ML IV SCH (11:14)
[2024-08-18] MEDS: INSULIN LISPRO 100 UNITS/ML SUBCUT SCH (13:37)
[2024-08-19] VITALS (10 sets, daily range): BP systolic 115–158; BP diastolic 56–85; PULSE 87–126; RESP 16–20; TEMP 36.28068–36.72516; O2SAT 95–98
[2024-08-19 08:02] LABS: IRON 27 ug/dL (65-175)
[2024-08-19 08:05] LABS: PHOSPHORUS 3.6 mg/dL (2.5-4.9); TOTAL IRON BINDING CAPACITY 218 ug/dl (250-425)
[2024-08-19 08:06] LABS: T4 FREE 1.49 ng/dL (0.89-1.76); THYROID STIMULATING HORMONE 0.64 uIU/mL (0.55-4.78)
[2024-08-19 08:26] LABS: FOLIC ACID (FOLATE) SERUM 10.01 ng/mL (>5.38); VITAMIN B12 SERUM 579 pg/mL (211-911)
[2024-08-19] MEDS: PANTOPRAZOLE 40MG DR TABLET PO SCH (08:37)
[2024-08-19] MEDS ORDERED: FUROSEMIDE 40MG/4ML VIAL IVP SCH (09:00)
[2024-08-19] MEDS ORDERED: NIFEDIPINE 10MG CAPSULE PO SCH (14:00)
[2024-08-19 15:53] LABS: HEMATOCRIT. 28.1 % (42.0-52.0); HEMOGLOBIN. 9.2 g/dL (14.0-18.0); MEAN CORPUSCULAR HEMOGLOBIN 30.5 pg (28.0-32.0); MEAN CORPUSCULAR HGB CONC 32.8 g/dL (31.0-37.0); MEAN PLATELET VOLUME 7.8 fl (7.4-10.4); PLATELET 182 x1000/uL (130-400); RED BLOOD CELL COUNT 3.02 mill/uL (4.7-6.1); RED CELL DISTRIBUTION WIDTH 15.6 % (11.6-14.6); WHITE BLOOD COUNT 12.5 x1000/uL (4.5-11.0)
[2024-08-19 15:57] LABS: CHLORIDE 104 mEq/L (98-107); POTASSIUM 3.8 mEq/L (3.5-5.1); SODIUM 136 mEq/L (136-145)
[2024-08-19 15:58] LABS: CARBON DIOXIDE 19 mEq/L (21-32)
[2024-08-19 16:01] LABS: DIFFERENTIAL COMMENT 1
[2024-08-19 16:03] LABS: CREATININE 3.8 mg/dL (0.6-1.3); GLUCOSE 211 mg/dL (70-105); UREA NITROGEN BLOOD 74 mg/dL (9-23)
[2024-08-19 16:05] LABS: PHOSPHORUS 2.9 mg/dL (2.5-4.9)
[2024-08-19 16:06] LABS: LACTIC ACID 3.4 mmol/L (0.4-2.0)
[2024-08-19 18:00] LABS: ANISOCYTOSIS 1+; PLATELET ESTIMATE NORMAL
[2024-08-19] MEDS: DILTIAZEM HCL 90MG TABLET PO SCH (18:30)
[2024-08-19] MEDS ORDERED: SACUBITRIL/VALSARTAN 24MG/26MG TABLET PO SCH (21:00)
[2024-08-19] MEDS: MUPIROCIN 2% OINT 22GM NS SCH (21:27)
[2024-08-19] MEDS: HYDRALAZINE HCL 25MG TABLET PO SCH (21:27)
[2024-08-20] VITALS (10 sets, daily range): BP systolic 118–149; BP diastolic 60–73; PULSE 91–130; RESP 17–20; TEMP 36.05844–36.78072; O2SAT 95–100
[2024-08-20 05:16] LABS: HEMOGLOBIN. 9.6 g/dL (14.0-18.0); MEAN CORPUSCULAR HEMOGLOBIN 30.6 pg (28.0-32.0); MEAN CORPUSCULAR HGB CONC 33.1 g/dL (31.0-37.0); MEAN CORPUSCULAR VOLUME 92.5 fL (80.0-94.0); MEAN PLATELET VOLUME 8.1 fl (7.4-10.4); PLATELET 185 x1000/uL (130-400); RED BLOOD CELL COUNT 3.14 mill/uL (4.7-6.1); RED CELL DISTRIBUTION WIDTH 15.9 % (11.6-14.6); WHITE BLOOD COUNT 11.8 x1000/uL (4.5-11.0)
[2024-08-20 05:17] LABS: CARBON DIOXIDE 20 mEq/L (21-32); CHLORIDE 105 mEq/L (98-107); POTASSIUM 3.9 mEq/L (3.5-5.1); SODIUM 137 mEq/L (136-145)
[2024-08-20 05:18] LABS: CALCIUM 7.9 mg/dL (8.7-10.4)
[2024-08-20 05:23] LABS: CREATININE 3.6 mg/dL (0.6-1.3); GLUCOSE 155 mg/dL (70-105); UREA NITROGEN BLOOD 69 mg/dL (9-23)
[2024-08-20 05:25] LABS: PHOSPHORUS 2.8 mg/dL (2.5-4.9)
[2024-08-20 07:19] LABS: DIFFERENTIAL COMMENT 1
[2024-08-20] MEDS: SPIRONOLACTONE 25MG TABLET PO SCH (08:38)
[2024-08-20] MEDS: CARVEDILOL 3.125 MG TABLET PO SCH (13:37)
[2024-08-20 14:31] LABS: PLATELET ESTIMATE NORMAL
[2024-08-20] MEDS ORDERED: APIXABAN 2.5 MG TABLET PO SCH (21:00)
[2024-08-20] MEDS ORDERED: FAMOTIDINE 20MG TABLET PO SCH (21:00)
== END 2024-08-20 18:10 | DRG 291 ==
LOC: ER 09:38 → EDBEDREQ 09:57 → 7WST 12:19 → EDBEDREQTM 12:34 → EDBEDREQ 12:34
PROVIDERS: ADMIT Hospitalist; ATTEND Hospitalist
DX: I13.0 Hypertensive heart and chronic kidney disease with heart failure and stage 1 through stage 4 chronic kidney disease, or unspecified chronic kidney disease (principal); I50.23 Acute on chronic systolic (congestive) heart failure; J96.01 Acute respiratory failure with hypoxia; N18.4 Chronic kidney disease, stage 4 (severe); N17.9 Acute kidney failure, unspecified; J98.11 Atelectasis; N39.0 Urinary tract infection, site not specified; I48.91 Unspecified atrial fibrillation; N40.0 Benign prostatic hyperplasia without lower urinary tract symptoms; T50.2X5A Adverse effect of carbonic-anhydrase inhibitors, benzothiadiazides and other diuretics, initial encounter; E11.22 Type 2 diabetes mellitus with diabetic chronic kidney disease; E11.65 Type 2 diabetes mellitus with hyperglycemia; I25.10 Atherosclerotic heart disease of native coronary artery without angina pectoris; E78.5 Hyperlipidemia, unspecified; I25.5 Ischemic cardiomyopathy; F32.A Depression, unspecified; F03.90 Unspecified dementia, unspecified severity, without behavioral disturbance, psychotic disturbance, mood disturbance, and anxiety; I34.0 Nonrheumatic mitral (valve) insufficiency; Z79.02 Long term (current) use of antithrombotics/antiplatelets; Z79.4 Long term (current) use of insulin; Z79.82 Long term (current) use of aspirin; Z79.899 Other long term (current) drug therapy; Z82.3 Family history of stroke; Z82.49 Family history of ischemic heart disease and other diseases of the circulatory system; Z83.3 Family history of diabetes mellitus; Z86.73 Personal history of transient ischemic attack (TIA), and cerebral infarction without residual deficits; Z98.61 Coronary angioplasty status
CPT/HCPCS: 36415; 36600; 71045; 74176; 76604; 76770; 80048; 80061; 80076; 80305; 81003; 82375; 82550; 82553; 82607; 82728; 82746; 82805; 82962; 83036; 83540; 83550; 83605; 83735; 83880; 83970; 84100; 84145; 84153; 84439; 84443; 84484; 85025; 85027; 93005; 93306; 93970; 94070; 94640; 94760; 99285; C1893; J0696; J1650; J1815; J1940; J2470; J2919; J7030

== ENCOUNTER 2024-09-22 03:01 | Emergency (ER) | payer MEDICARE, MEDICAID ==
[~2024-09-22] VITALS: Ht 177.8 cm; Wt 85.0 kg
[~2024-09-22 03:01] MED LIST changes: +APIX5TAB PO; +CALC-1059 PO; -CARV25TA47 PO; -CLOP75TA33 PO; +COR3 PO; +DILT90TA2 PO; -FAMO20TA8 PO; +FLUO15CR35 TP; +FLUT12AE7 INH; +FURO-151 MT; -FURO40TA5 PO; +GABA-1180 PO; -HYDR25TA78 PO; -LORA10TA7 PO; -LOSA100T33 PO; -METF-1150 PO; -NAPHADR OP; +OLOP5DRO25 EACHEYE; -ONDA4TAB50 PO; -OXYB5TAB21 PO; +SACU1TAB MT; +SILV20CR13 TP; +SPIR25TA PO; +[UNRECOGNIZED DRUG - CODE] PO
[2024-09-22 04:10] VITALS: BP 127/64; PULSE 73; RESP 14; TEMP 35.9; O2SAT 100
[2024-09-22] MEDS: LIDOCAINE HCL/EPINEPHRINE 1%-EPI 1:100,000 20ML VIAL INFIL ONE (05:01)
[2024-09-22] MEDS: BACITRACIN ZINC OINT UDPKT TOP ONE (05:38)
[2024-09-22] MEDS: TETANUS, DIPHTHERIA, PERTUSSIS VAC/PF 0.5ML (>10YR OLD) IM ONE (05:39)
[2024-09-28] MEDS ORDERED: APIX2.5T PO (20:34)
[2024-09-28] MEDS ORDERED: ATOR40TA70 PO (20:38)
[2024-09-28] MEDS ORDERED: GLIP5TAB22 PO (20:42)
[2024-09-28] MEDS ORDERED: GABA-1180 PO (20:51)
[2024-09-28] MEDS ORDERED: TAMS-11 PO (20:51)
[2024-09-28] MEDS ORDERED: EMPA10TA PO (20:57)
[2024-09-28] MEDS ORDERED: ATROV PO (21:01)
[2024-09-28] MEDS ORDERED: ALBU18HF2 PO (21:04)
[2024-09-28] MEDS ORDERED: [UNRECOGNIZED DRUG - CODE] PO (21:04)
[2024-09-28] MEDS ORDERED: KETO15CR2 TP (21:22)
== END 2024-09-22 14:53 | disposition home or self-care (01) ==
LOC: ER 03:01
DX: S50.311A Abrasion of right elbow, initial encounter (principal); S31.31XA Laceration without foreign body of scrotum and testes, initial encounter; M25.561 Pain in right knee; E78.5 Hyperlipidemia, unspecified; F32.A Depression, unspecified; F03.93 Unspecified dementia, unspecified severity, with mood disturbance; Z86.73 Personal history of transient ischemic attack (TIA), and cerebral infarction without residual deficits; Z79.84 Long term (current) use of oral hypoglycemic drugs; Z79.899 Other long term (current) drug therapy; Z79.51 Long term (current) use of inhaled steroids; Z79.82 Long term (current) use of aspirin; Z79.01 Long term (current) use of anticoagulants; W01.0XXA Fall on same level from slipping, tripping and stumbling without subsequent striking against object, initial encounter; Y93.89 Activity, other specified; Y92.89 Other specified places as the place of occurrence of the external cause; Y99.8 Other external cause status
CPT/HCPCS: 73560; 90471; 90715; 99283

== ENCOUNTER 2025-01-17 14:23 | Emergency (ER) | payer MEDICARE, MEDICAID ==
[~2025-01-17] VITALS: Ht 170.2 cm; Wt 82.0 kg
[~2025-01-17 14:23] MED LIST changes: +APIX2.5T PO; -APIX5TAB PO; -ASPI-1497 PO; -CALC-1059 PO; +EMPA10TA PO; -EMPA25TA PO; +GLIP5TAB22 PO; -IPRA3AMP9 HHN; -SACU1TAB MT; -SILV20CR13 TP; -SPIR25TA PO; +TAMS-54 PO; -TAMS0.4C31 PO; -[UNRECOGNIZED DRUG - CODE] PO
[2025-01-17 14:25] VITALS: O2SAT 99
[2025-01-17 18:59] VITALS: BP 108/60; PULSE 75; RESP 14; TEMP 36.7; O2SAT 99
== END 2025-01-17 19:09 | disposition home or self-care (01) ==
LOC: ER 14:23
DX: S09.90XA Unspecified injury of head, initial encounter (principal); M54.50 Low back pain, unspecified; I10 Essential (primary) hypertension; F32.A Depression, unspecified; F03.93 Unspecified dementia, unspecified severity, with mood disturbance; N28.9 Disorder of kidney and ureter, unspecified; Z79.899 Other long term (current) drug therapy; W01.0XXA Fall on same level from slipping, tripping and stumbling without subsequent striking against object, initial encounter; Y93.89 Activity, other specified; Y92.89 Other specified places as the place of occurrence of the external cause; Y99.8 Other external cause status
CPT/HCPCS: 72100; 99285; A4606

== ENCOUNTER 2025-05-18 11:09 | Emergency (ER) | payer MEDICARE, MEDICAID ==
[~2025-05-18] VITALS: Ht 172.7 cm; Wt 75.0 kg
[~2025-05-18 11:09] MED LIST changes: +DONE10TA11 PO; -FURO-151 MT; +FURO20TA4 MT
[2025-05-18 11:20] VITALS: TEMP 36.8; O2SAT 98
[2025-05-18 13:56] LABS: HEMATOCRIT. 34.2 % (42.0-52.0); HEMOGLOBIN. 11.2 g/dL (14.0-18.0); MEAN PLATELET VOLUME 7.6 fl (7.4-10.4); PLATELET 273 x1000/uL (130-400); RED BLOOD CELL COUNT 3.77 mill/uL (4.7-6.1); RED CELL DISTRIBUTION WIDTH 15.1 % (11.6-14.6)
[2025-05-18 14:04] LABS: CREATININE 3.6 mg/dL (0.6-1.3)
[2025-05-18 14:05] LABS: INR 1.0; UREA NITROGEN BLOOD 39 mg/dL (9-23)
[2025-05-18 14:06] LABS: ASPARTATE AMINOTRANSFERASE 18 IU/L (<34)
[2025-05-18 14:07] LABS: BILIRUBIN DIRECT < 0.1 mg/dL (<=3.0); BILIRUBIN TOTAL 0.3 mg/dL (0.1-1.0); PROTEIN TOTAL 7.0 g/dL (6.0-8.3)
[2025-05-18 14:13] LABS: EOSINOPHILS % MANUAL 19.0 % (0.0-5.0); LYMPHOCYTES % MANUAL 6.0 % (20.0-50.0); MONOCYTES % MANUAL 6.0 % (2.0-8.0); NEUTROPHILS % MANUAL 69.0 % (45.0-75.0); PLATELET ESTIMATE NORMAL
[2025-05-18 17:00] LABS: TROPONIN I HIGH SENSITIVITY 19 ng/L (3.0-53)
[2025-05-18 19:57] VITALS: BP 140/86; PULSE 88; RESP 18; O2SAT 98
== END 2025-05-18 20:04 | disposition home or self-care (01) ==
LOC: ER 11:09
DX: R68.83 Chills (without fever) (principal); R19.7 Diarrhea, unspecified; I48.91 Unspecified atrial fibrillation; I11.0 Hypertensive heart disease with heart failure; I50.9 Heart failure, unspecified; I25.10 Atherosclerotic heart disease of native coronary artery without angina pectoris; F03.90 Unspecified dementia, unspecified severity, without behavioral disturbance, psychotic disturbance, mood disturbance, and anxiety; J44.9 Chronic obstructive pulmonary disease, unspecified; E11.9 Type 2 diabetes mellitus without complications; Z79.01 Long term (current) use of anticoagulants; Z79.51 Long term (current) use of inhaled steroids; Z79.84 Long term (current) use of oral hypoglycemic drugs; Z79.899 Other long term (current) drug therapy; Z86.73 Personal history of transient ischemic attack (TIA), and cerebral infarction without residual deficits
CPT/HCPCS: 36415; 71045; 80048; 80076; 83605; 84484; 85025; 93005; 99285